=== PATIENT | female | born 1995 | race Caucasian/White ===

== ENCOUNTER 2017-11-02 13:53 | Emergency (ER) | payer MEDICAID ==
[~2017-11-02] VITALS: Ht 157.5 cm; Wt 62.0 kg
[2017-11-02 14:38] VITALS: BP 120/79
== END 2017-11-02 16:35 | disposition home or self-care (01) ==
LOC: ER 13:53
DX: Z48.00 Encounter for change or removal of nonsurgical wound dressing (principal)
CPT/HCPCS: 99281

== ENCOUNTER 2017-11-09 15:49 | Emergency (ER) | payer MEDICAID ==
[~2017-11-09] VITALS: Ht 157.5 cm; Wt 66.0 kg
[2017-11-09 15:56] VITALS: BP 128/81
== END 2017-11-09 19:02 | disposition home or self-care (01) ==
LOC: ER 15:56
DX: Z48.02 Encounter for removal of sutures (principal)
CPT/HCPCS: 99281; Z7610